=== PATIENT | female | born 1935 | race Caucasian/White ===

== ENCOUNTER → 2018-07-19 | Outpatient (CLI) | payer MEDICARE, OTHER ==
--- NOTE | 2018-07-19 18:24 | CONS ---
Date/Time of Note Date/Time of Note DATE: 07/19/18 TIME: 18:12 Assessment/Plan Assessment/Plan Hospital Course This is an 82-year-old female who has failed conservative management for her right knee rheumatoid arthritis. She is currently only on methotrexate. 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 Her albumin was slightly low otherwise total protein was good. Vitamin D levels were not available for review. ESR was significantly elevated. CRP was also not available for review. She is able to have medical clearance she would be a good surgical candidate. I reviewed with her and her son her increased risk of infection as well as wound healing secondary to rheumatoid arthritis. They understood this and wished to continue the process of having a right total knee arthroplasty. They will discuss surgery further as a family and let us know when they are ready. Prior to scheduling surgery the patient will require new ESR, CRP, CBC with differential. Consultation Date/Type/Reason Admit Date/Time Date of Consultation: Jul 19, 2018 Reason for Consultation Right knee pain Hx of Present Illness Is a 82-year-old female with a chief complaint of right knee pain. Patient has history of rheumatoid arthritis. She is currently on methotrexate. She previously was on Humira. She currently is on no other antirheumatic drugs but may be starting another one shortly. The pain began years ago. The patients pain is in the medial aspect of the right knee. Pain is not radiating to the lower leg. The pain is rated as a 7/10. Patient denies complaints of numbness or tingling. The pain is exacerbated by c ambulation and weightbearing. She uses a walker at all times. She has been using a walker for at least a year.. Pain is not relieved by NSAID's. Patient has been taking ibuprofen on a p.r.n. basis as well as using ice. Duration: Years Injury: No Walking tolerance: 1-2 blocks with a walker Limp: Yes Support: Walker at all time Swelling: Yes Crepitation: Yes Instability: Yes Stairs: Does not use Physical Therapy: This yes Injections: Steroid and hyaluronic acid injections. Last one was 2 months ago. Did not help NSAIDs: Ibuprofen Prior surgery: No Back pain: Yes Hip pain: No Risk of AVN : No Patient denies fever, chills, shortness of breath, chest pain, nausea/vomiting, constipation, diarrhea, numbness, and tingling. Past Medical History Pulmonary embolismprovoked pulmonary embolism after lumbar spine laminectomy in 2003. Patient was on warfarin and now is just on aspirin. Rheumatoid arthritis Tremors mild mitral valve regurgitation Mild dementia Osteoporosis Past Surgical History Laminectomy 2004 Implanted neurostimulator 2004 Family History Significant Family History: no pertinent family hx Social History Alcohol Use: none Smoking Status: Never smoker Drug Use: none Exam/Review of Systems Vital Signs Vitals weight: 175 pounds Height: 5 foot 2 inches BMI: 32 Temperature: 98.4 Heart Rate: 62 Blood Pressure: 120/58 Respiratory Rate: 12 Exam General: Alert, oriented x3. No Acute Distress. Heart: Regular rate and rhythm. Lungs: No respiratory distress. No accessory muscle use. Musculoskeletal: Right Knee This is a well developed female who is alert, oriented times three and in no apparent distress. Skin is intact over the right knee as well as the lower extremity with no abrasions, lacerations, or ulcerations there is lymphedema of the right lower extremity. Observation of the patient's gait reveals an antalgic gait with Varus thrust. Frontal plane alignment is varus. There is pain on palpation of medial joint line. The patient demonstrates grinding anteriorly with ROM. Range of motion: 0 extension to approximately 120 degrees of flexion. Collateral ligament testing reveals no instability with varus or valgus stress at 0 and 30 degrees of flexion. Negative Jasson's and negative posterior drawer. Neurovascularly intact with 5/5 EHL/tibialis anterior/gastroc. Sensation intact to light touch in a sural, saphenous, deep peroneal, superficial peroneal, medial and lateral plantar nerve distribution. Palpable, symmetric dorsalis pedis and posterior tibial pulses in both lower extremities. Hip examination normal. Imaging Imaging The patient received a standard set of films today that were personally reviewe d. Imaging included a standing bilateral knee AP, PA flexion, merchant views and a dedicated lateral of the affected knee: There is neutral alignment of the knee. There is complete loss of joint space in all 3 compartment(s). There is subluxation of the tibia in the coronal plane. There is osteophyte formation. There is subchondral sclerosis. There are subchondral cysts. Degenerative changes are most severe in the medial and lateral compartment(s) ADA JARVIS MD Jul 19, 2018 18:24
--- NOTE | 2018-07-20 08:38 | RADRPT ---
PROCEDURE: Bilateral knee study CLINICAL INDICATION: Pain TECHNIQUE: AP weightbearing, PA axial weightbearing, and sunrise views were obtained of the right l eft knees and a single lateral weightbearing view of the right knee was obtained. 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 Moderate degenerate joint disease of the left knee involving all 3 compartments worse involvi ng the lateral compartment. No acute fractures or dislocations. No focal bony blastic or lytic lesion s. No evidence of a left knee joint effusion. Dystrophic calcifications involving the posterior right knee. IMPRESSION: 1. Severe degenerate joint disease right knee and moderate degenerate joint disease left knee withou t acute fractures or dislocations. 2. No evidence of right knee joint effusion. RPTAT:AAJJ Physician Diana Date Time Electronically viewed and signed by Jose Florian Physician on 07/20/2018 08:38 BM/
== END | disposition home or self-care (01) ==
LOC: HKI 15:57
PROVIDERS: ATTEND Orthopaedic Surgery Adult Reconstructive Orthopaedic Surgery
DX: M06.9 Rheumatoid arthritis, unspecified (principal); I34.0 Nonrheumatic mitral (valve) insufficiency; F03.90 Unspecified dementia, unspecified severity, without behavioral disturbance, psychotic disturbance, mood disturbance, and anxiety; Z86.711 Personal history of pulmonary embolism
CPT/HCPCS: 73564; G0463